=== PATIENT | female | born 1965 | race Two or more races ===

== ENCOUNTER → 2016-10-24 | Outpatient (CLI) | payer OTHER ==
[~2016-10-24] MED LIST: ACETAMINOPHEN 500 MG TAB PO ONE; LR 1,000 ML IV SCH; ROPIVACAINE 0.2% 80 MG, EPINEPHrine 0.2 MG, KETOROLAC TROMETHAMINE 30 MG, morphINE 10 M... IU ONE; TRANEXAMIC ACID 3,000 MG in NS 50 ML IRR ONE; ceFAZolin 2 GM/DEXTROSE 100 ML IV ONE
--- NOTE | 2016-10-24 17:18 | PDHPUP ---
History & Physical Update H&P update statement: This history and physical update is based on an assessment of the patient which was completed after admission or registration (within 24 hours), but prior to the surgery/procedure. H&P update: H&P reviewed & patient examined, no change in patient's condition since H&P completed
== END ==
LOC: FIMAGING 15:31
PROVIDERS: ATTEND Orthopaedic Surgery
DX: M17.0 Bilateral primary osteoarthritis of knee (principal)
CPT/HCPCS: J0171; J1885; J2795

== ENCOUNTER 2016-10-25 05:25 | Observation (INO) | payer OTHER ==
[2016-10-25] MEDS ORDERED: ROPI/epiNEPH/KETOROLAC/morphINE JOINT COCKTAIL IU ONE (06:00)
[2016-10-25] MEDS ORDERED: CEFAZOLIN 2 GM/DEXTR 100 ML IV ONE (06:00)
[2016-10-25] MEDS ORDERED: ACETAMINOPHEN 500 MG TAB PO ONE (06:00)
[2016-10-25] MEDS ORDERED: TRANEXAMIC ACID 3,000 MG in NS 50 ML IRR ONE (06:00)
[2016-10-25] MEDS ORDERED: LR 1,000 ML IV ONE (06:00)
[2016-10-25] MEDS ORDERED: LIDOCAINE 1% 2 ML INJ ONE (06:38)
[2016-10-25] MEDS ORDERED: THROMBIN (BOVINE) 5,000 UNIT VIAL TP ONE (06:48)
[2016-10-25] MEDS ORDERED: CALCIUM CHLORIDE 1 GM/10 ML INJ ONE (06:48)
[2016-10-25] MEDS ORDERED: BUPIVACAINE/EPI 0.5% 30 ML SDV ONE (06:48)
[2016-10-25] MEDS ORDERED: POLYMYXIN B SULFATE 500,000 UNIT/10 ML SYR IRR ONE (06:49)
[2016-10-25] MEDS ORDERED: BACITRACIN 50,000 UNITS/10 ML SYR IRR ONE (06:49)
[2016-10-25] MEDS ORDERED: MIDAZOLAM 2 MG/2 ML VIAL IVP ONE (06:54)
--- NOTE | 2016-10-25 06:55 | PDANEPAE ---
ANE History of Present Illness right knee pain p/f partial knee arthroplasty ANE Past Medical History - Cardiovascular History Hx Hypertension: Yes Hx Arrhythmias: No Hx Chest Pain: No Hx Coronary Artery / Peripheral Vascular Disease: No Hx CHF / Valvular Disease: No Hx Palpitations: No Cardiovascular History Comment: told heart murmur -5-6 yrs ago.August 2016 EKG WNL. - Pulmonary History Hx COPD: No Hx Asthma/Reactive Airway Disease: No Hx Recent Upper Respiratory Infection: No Hx Oxygen in Use at Home: No Hx Sleep Apnea: No Sleep Apnea Screening Result - Last Documented: Negative - Neurologic History Hx Cerebrovascular Accident: No Hx Seizures: No Hx Dementia: No - Endocrine History Hx Diabetes: No Hypothyroid: No Hyperthyroid: No Obesity: yes, severe - Renal History Hx Renal Disorders: No - Liver History Hx Hepatic Disorders: No - Neurological & Psychiatric Hx Hx Neurological and Psychiatric Disorders: No - Cancer History Hx Cancer: No - Congenital Disorder History Hx Congenital Disorders: No - GI History Hx Gastrointestinal Disorders: No - Other Health History Other Health History: OA bilat knees- R knee more painful. - Chronic Pain History Chronic Pain: Yes (R knee) - Surgical History Prior Surgeries: ear tubes placed age 10 ANE Review of Systems Review of systems is: negative Review of Systems: - Exercise capacity METS (RN): 4 METS ANE Patient History - Allergies Allergies/Adverse Reactions: No Known Allergies Allergy (Verified 10/19/16 16:53) - Home Medications Home medications: home medication list seen and reviewed Home Medications: Atenolol 01/12/14 [Last Taken Unknown] Triamterene 01/12/14 [Last Taken Unknown] - NPO status NPO Since - Liquids (Date): 10/24/16 NPO Since - Liquids (Time): 23:00 NPO Since - Solids (Date): 10/24/16 NPO Since - Solids (Time): 20:30 - Anes Hx Anes Hx: no prior problems - Smoking Hx Smoking Status: Former smoker ANE Labs/Vital Signs - Vital Signs Blood Pressure: 121/66 Heart Rate: 47 Respiratory Rate: 16 O2 Sat (%): 90 Height: 165.1 cm Weight: 103.873 kg ANE Physical Exam - Airway Neck exam: FROM Mallampati Score: Class 1 Mouth exam: normal dental/mouth exam - Pulmonary Pulmonary: no respiratory distress - Cardiovascular Cardiovascular: regular rate and rhythym - ASA Status ASA Status: III ANE Anesthesia Plan Anesthesia Plan: spinal Regional Anesthesia: single shot NB, adductor canal FNB
--- NOTE | 2016-10-25 06:59 | PDGENHP ---
History & Physical Chief Complaint: r knee pain History of Present Illness: pain in r knee Pertinent Past, Social, Family History: none Relevant Physical Exam: varus r knee with mjl pain Cardiorespiratory Assessment: cta. rrr. soft and nt
[2016-10-25] MEDS ORDERED: PROPOFOL/EMULSION 500 MG/50 ML BOTTLE IV ONE (07:00)
[2016-10-25] MEDS ORDERED: LIDOCAINE 2% 5 ML SDV ONE (07:03)
[2016-10-25] MEDS ORDERED: BUPIVACAINE 0.5% 30 ML SDV ONE (07:05)
[2016-10-25] MEDS ORDERED: fentaNYL 100 MCG/2 ML INJ ONE ×2 (07:48→09:43)
[2016-10-25] MEDS ORDERED: PROPOFOL 200 MG/20 ML VIAL ONE ×3 (08:08→09:01)
[2016-10-25] MEDS ORDERED: TRANEXAMIC ACID 3,000 MG/50 ML BAG IRR ONE (08:40)
[2016-10-25] MEDS ORDERED: ONDANSETRON 4 MG/2 ML VIAL IVP PRN (08:58)
[2016-10-25] MEDS ORDERED: DEXAMETHASONE 4 MG/ML VIAL IVP PRN (08:58)
[2016-10-25] MEDS ORDERED: LABETALOL HCL 50 MG/10 ML SYR IVP PRN (08:58)
[2016-10-25] MEDS ORDERED: PROMETHAZINE HCL 25 MG/ML INJ IVP PRN (08:58)
[2016-10-25] MEDS ORDERED: ALBUTEROL 3 ML DEYVIAL IH PRN (08:58)
[2016-10-25] MEDS ORDERED: NALOXONE HCL 0.4 MG/ML INJ IVP PRN (08:58)
[2016-10-25] MEDS ORDERED: ACETAMINOPHEN 500 MG TAB PO PRN (08:58)
[2016-10-25] MEDS ORDERED: fentaNYL 100 MCG/2 ML INJ IVP PRN (08:58)
[2016-10-25] MEDS ORDERED: METOCLOPRAMIDE 10 MG/2 ML VIAL IVP PRN (09:32)
[2016-10-25] MEDS ORDERED: POLYETHYLENE GLYCOL 3350 17 GM PKT PO PRN (09:32)
[2016-10-25] MEDS ORDERED: DIPHENOXYLATE/ATROPINE LOMOTIL 1 TAB PO PRN (09:32)
[2016-10-25] MEDS ORDERED: CYCLOBENZAPRINE 10 MG TAB PO PRN (09:32)
[2016-10-25] MEDS ORDERED: diphenhydrAMINE 25 MG CAP PO PRN (09:32)
[2016-10-25] MEDS ORDERED: TAPENTADOL HCL 50 MG TAB PO PRN (09:32)
[2016-10-25] MEDS ORDERED: MAGNESIUM HYDROXIDE 30 ML UDCUP PO PRN (09:32)
[2016-10-25] MEDS ORDERED: LACTULOSE 20 GM/30 ML UDCUP PO PRN (09:32)
[2016-10-25] MEDS ORDERED: TEMAZEPAM 15 MG CAP PO PRN (09:32)
[2016-10-25] MEDS ORDERED: PHARMACY PAIN CONSULT 1 EA MISC PRN (09:32)
[2016-10-25] MEDS ORDERED: ONDANSETRON DISINTEGRATING 4 MG TAB PO PRN (09:32)
[2016-10-25] MEDS ORDERED: PROMETHAZINE HCL 25 MG SUPPR PR PRN (09:32)
[2016-10-25] MEDS ORDERED: BISACODYL 10 MG SUPP PR PRN (09:32)
--- NOTE | 2016-10-25 09:32 | POSTOPPROG ---
Post Op Note Date of Operation: 10/25/16 Surgeon: Brina Salinas [employer] Farmworker: coltrain Anesthesia: Epidural, IV Sedation Pre-op Diagnosis: r knee oa Procedure: r pkr with robot Inf/Abcess present in the surg proc area at time of surgery?: No Depth: Deep Incisional (Fascial) EBL: 100-500
--- NOTE | 2016-10-25 09:41 | POSTANESTH ---
Post Anesthetic Evaluation Cardiovascular Status: Normal, Stable Respiratory Status: Normal, Stable Level of Consciousness/Mental Status: Can Participate in Eval Pain Control: Adequate, Prn Tx Ordered Nausea/Vomiting Control: Adequate, Prn Tx Ordered Complications Possibly Related to Anesthesia: None Noted
[2016-10-25] MEDS ORDERED: HYDROmorphONE/DILAUDID 1 MG/ML INJ ONE (09:43)
[2016-10-25] MEDS: HYDROmorphONE/DILAUDID 1 MG/ML INJ IVP PRN ×2 (09:46→09:59)
[2016-10-25] MEDS ORDERED: LR 1,000 ML IV SCH (10:00)
--- NOTE | 2016-10-25 10:28 | GOP ---
[f rep st] OPERATIVE REPORT DATE OF OPERATION: 10/25/2016 SURGEON: Brina Salinas MD ORACLE PROGRAMMER ANALYST: AHMET CorbinA, LSA, whose presence was medically necessary. ANESTHESIA: By epidural nerve block plus sedation. PREOPERATIVE DIAGNOSIS: Right knee osteoarthritis. POSTOPERATIVE DIAGNOSIS: Right knee osteoarthritis. PROCEDURE PERFORMED: Right partial knee replacement with the robot. FINDINGS: INDICATIONS: This is a 51-year-old female with a several month history of right knee pain worsening with use and with time, despite multiple conservative measures to include anti-inflammatories and viscosupplementation. Imaging studies reveal ipvk-to-lcfc osteoarthritic changes of the medial compartment. She wishes to have surgery in order to resolve the problem. DESCRIPTION OF PROCEDURE: The patient was brought to the operating room after the right side had been identified as the correct side by the patient, nurse and physician. Once in the operating room, she was given an epidural nerve block. She was then placed supine on the operative table with a tourniquet placed around the upper portion of the right thigh. The right lower extremity was then sterilely prepped and draped in the usual fashion using GSI solution. Once prepped and draped, the limb was exsanguinated and the tourniquet inflated to 250 mmHg. Two incisions were made on the tibia approximately 4 fingerbreadths below the tibial tubercle with threaded Steinmann pins placed into the bone with a detection array placed on the pins. The same was done of the femur approximately 5 cm above the superior pole of the patella, where 2 small incisions were made and threaded Steinmann pins were placed in the femur holding the computer array in place. A linear incision was then made on the anterior portion of the knee starting at the tibial tubercle and extending to just above the superior patellar pole. Sharp dissection was carried down through the skin and subcutaneous layer, with bleeding controlled using electrocautery. A medial parapatellar incision was made through the extensor mechanism. An abundant amount of retropatellar fat pad was removed as well as the medial meniscus. She was noted to have rniv-mi-rvax osteoarthritic changes of the medial compartment. Once in place, bone mapping was done with the aid of the robot. Once the area had been completely mapped out and bone guides had been placed in the femur and the tibia, the [employer] robot was able to be used to rosy away the necessary bone as well as the peg holes, fitting for size 3 tibia and femoral components after balancing had been done. Once positioned, the patient was noted to have excellent range of motion with good stability to valgus stress at 0, 45 and 90 degrees. Therefore, the bone was thoroughly irrigated with an antibiotic solution using pulsatile lavage while cement was being mixed. Once cement was doughy, it was placed on the cut surfaces of the femur and tibia with a size 3 right medial tibial base plate from [employer] from [facility]. It was put in place and excess cement removed using a [place] elevator. Cement was then placed on the cut surface of the femur with a Restoris Yimi size 3 right medial femoral component put into place, with excess cement removed using [place] elevator. The trial liner was placed in the tibial tray. The knee was brought to full extension under pressurized cement. Any excess cement was then removed using a [place] elevator and/or rongeur. It was noted that a size 10 polyethylene insert seemed to fit best. Therefore, a size 10 insert was placed with the tibial tray. It was noted to click into place well. The tourniquet was released at 62 minutes. Tranexamic acid was irrigated through the knee. Bleeding was controlled using electrocautery. A joint cocktail had been injected into the posterior capsule, along the periosteum of the femur and the tibia and into the extensor mechanism. The wound was closed with 0 Vicryl suture in a iudccy-vy-qvtdp type stitch with plasma gel placed intra-articularly; 0 Vicryl and 2-0 Vicryl suture were used to close the subcutaneous layers with plasma gel placed external to the extensor mechanism; 3 -0 V-Loc suture in a running subcutaneous stitch was used to close the skin layers and Monocryl was used to close the puncture wounds associated with the femur and tibial arrays which had been removed. Then, 30 mL of Marcaine was infused into the skin around the actual incision itself. The wounds were then dressed with Steri-Strips, Xeroform, 4x4s, and wrapped in Kerlix. The leg was completely undraped in the operating room, the tourniquet removed from the thigh, and an Harjit wrap placed around the knee. The patient was then transferred onto a stretcher and sent to the recovery room in a good condition. TOURNIQUET TIME: 62 minutes. /[id number]/MODL MTDD
[2016-10-25] MEDS: traMADol 50 MG TAB PO SCH ×2 (12:22→18:06)
[2016-10-25] MEDS: KETOROLAC 30 MG/1 ML SDV IVP SCH ×2 (12:22→18:09)
[2016-10-25] MEDS: ceFAZolin 2 GM/DEXTROSE 100 ML IV SCH ×2 (15:07→21:30)
--- NOTE | 2016-10-25 16:53 | ASMTCMCOM ---
CM Note CM Note Notes: Pt is s/p R TKA. She lives with her and daughter. PT has cleared pt. Anticipate d/c home with no CM needs but will continue to follow for any unanticipated d/c needs. Date Signed: 10/25/2016 04:52 PM Electronically Signed By:Doreen Peters
[2016-10-25] MEDS: oxyCODONE IR 5 MG TAB PO PRN (20:25)
[2016-10-25] MEDS: FAMOTIDINE 20 MG TAB PO SCH (20:26)
[2016-10-25] MEDS: SENNOSIDES/DOCUSATE SODIUM TAB PO SCH (20:27)
[2016-10-26] MEDS: traMADol 50 MG TAB PO SCH ×3 (00:05→11:37)
[2016-10-26] MEDS: KETOROLAC 30 MG/1 ML SDV IVP SCH ×3 (00:05→11:37)
[2016-10-26 05:20] LABS: HEMATOCRIT 36.2 % (38.0-47.0); HEMOGLOBIN 11.8 g/dL (12.6-16.3)
[2016-10-26] MEDS: oxyCODONE IR 5 MG TAB PO PRN ×2 (08:15→14:47)
[2016-10-26] MEDS: SENNOSIDES/DOCUSATE SODIUM TAB PO SCH (08:16)
[2016-10-26] MEDS: FAMOTIDINE 20 MG TAB PO SCH (08:17)
[2016-10-26] MEDS ORDERED: RIVAROXABAN 10 MG TAB PO SCH (09:00)
[2016-10-26 09:20] VITALS: TEMP 98.4
--- NOTE | 2016-10-26 12:09 | SOAPPROG ---
SOAP Progress Note Assessment/Plan: Assessment: Plan: - d/c home with home PT 10/26/16 12:08 Subjective: Doing well no issues, pain is minimal. She feels ready to go home Objective: Vital Signs Temp Pulse Resp BP Pulse Ox 36.9 C 56 L 16 122/60 H 93 10/26/16 09:19 10/26/16 09:19 10/26/16 09:19 10/26/16 09:19 10/26/16 09:19 Laboratory Results 10/26/16 04:47 10/25/16 10/26/16 10/27/16 05:59 05:59 05:59 Intake Total 1835 Output Total 700 Balance 1135 Wound CDI, compartments soft, NVI. Dressing changed - Time Spent With Patient Time Spent With Patient: 15 - Pending Discharge Pending Discharge Within 24 Hours: Yes Pending Discharge Within 48 Hours: No Pending Discharge Date: 10/27/16 Pending Discharge Time: 11:00 ICD10 Worksheet Patient Problems: Problems Problem Status Onset Arthritis of knee, right Acute - ICD10 Problem Qualifiers (1) Arthritis of knee, right
--- NOTE | 2016-10-26 12:11 | PDIAF ---
- Diagnosis Code Status: Full Code - Medication Management Discharge Medications: Medications to Continue on Transfer Atenolol [Tenormin 50 mg (*)] 50 mg PO DAILY 01/12/14 [Last Taken 10/25/16] Triamterene/Hydrochlorothiazid [Triamterene-Hctz 37.5-25 mg Tb] 1 each PO DAILY 01/12/14 [Last Taken 10/24/16] Ibuprofen [Motrin (*)] 200 mg PO DAILY PRN 10/25/16 [Last Taken Unknown] Rivaroxaban [Xarelto 10mg (*)] 10 mg PO DAILY 10/25/16 [Last Taken Unknown] Discharge Medications: Refer to the Discharge Home Medication list for PRN reason. PICC Care - Routine: N/A - Orders Services needed: Physical Therapy Diet Recommendation: no restrictions on diet Diet Texture: Regular Texture Diet Chew: Not applicable - Follow Up Care Current Providers and Referrals: Allan Canas DO [Primary Care Provider] -
[2016-10-26 12:58] VITALS: BP 116/49; PULSE 63; RESP 18; O2SAT 98
--- NOTE | 2016-10-26 16:51 | ASDISCHSUM ---
Discharge Information Plan Status:Home with No Needs Medically Cleared to Leave: Discharge Date:10/26/2016 03:49 PM CM D/C Disposition:Home, Routine, Self-Care ADT D/C Disposition:Home, Routine, Self-Care Projected Discharge Date:10/26/2016 03:49 PM Transportation at D/C: Discharge Delay Reason: Follow-Up Date:10/26/2016 03:49 PM Discharge Slot: Final Diagnosis: Placement Information Patient Contact Information Contact Name:DEVIN Relationship: Address:[address] City:[facility] Phone: [facility]/Zip Code:[place] [address] Email: Financial Information Financial Class:[facility] Primary Plan Desc:[facility] Primary Plan Number:[id number] Secondary Plan Desc: Secondary Plan Number: Assessment Information [facility] CM Progress Note CM Note CM Note Notes: Pt is s/p R TKA. She lives with her and daughter. PT has cleared pt. Anticipate d/c home with no CM needs but will continue to follow for any unanticipated d/c needs. Date Signed: 10/25/2016 04:52 PM Electronically Signed By:LILA Price [facility] CM Progress Note CM Note CM Note Notes: Pt medically stable for d/c, no CM d/c needs identified. Date Signed: 10/26/2016 04:50 PM Electronically Signed By:LILA Vasquez Intervention Information
[2016-10-27] MEDS ORDERED: RIVAROXABAN 10 MG TAB PO SCH (09:00)
== END 2016-10-26 15:49 | disposition home or self-care (01) ==
LOC: F3N 05:25 → INTOOBSV 05:25 → F3N 10:39
PROVIDERS: ADMIT Orthopaedic Surgery; ATTEND Orthopaedic Surgery
PROC: 8E0Y0CZ Robotic Assisted Procedure of Lower Extremity, Open Approach (ICD-10-PCS; principal; 2016-10-25 07:15)
PROC: 0SRC0J9 Replacement of Right Knee Joint with Synthetic Substitute, Cemented, Open Approach (ICD-10-PCS; principal; 2016-10-25 07:15)
DX: M17.0 Bilateral primary osteoarthritis of knee (principal); Z87.891 Personal history of nicotine dependence
CPT/HCPCS: 27446; 73560; 97110; 97116; 97161; 97165; G0378; C1713; J0171; J0690; J1170; J1885; J2250; J2704; J2795; J3010; L1832

== ENCOUNTER → 2016-12-01 | Outpatient (CLI) | payer OTHER | LOC: CIMAGING 14:23 | PROVIDERS: ATTEND Family Medicine | DX: Z12.31 Encounter for screening mammogram for malignant neoplasm of breast (principal) | CPT/HCPCS: G0202 ==

== ENCOUNTER 2016-12-20 07:14 | Observation (INO) | payer OTHER ==
--- NOTE | 2016-12-16 23:55 | GHP ---
[f rep st] PREOP HISTORY AND PHYSICAL CURRENT COMPLAINT: Left knee pain. HISTORY OF PRESENT ILLNESS: The patient is a 51-year-old female with a long history of left knee pema n, worsening with use and with time. MRI has revealed osteoarthritic changes within her knees with t he left worse than right. She has undergone conservative measures with viscosupplementation and anti -inflammatories, as well as physical therapy exercises. She has had successful right partial knee re placement. She is here for a left partial knee replacement. ALLERGIES: She lists no known allergies. CURRENT MEDICATIONS: Include atenolol, metoprolol, tramadol, triamterene with hydrochlorothiazide. PRIOR MEDICAL PROBLEMS: Negative. PAST SURGICAL HISTORY: Include ear surgery and a partial knee replacement. SOCIAL HISTORY: She has never been a smoker. She is a social drinker. PHYSICAL EXAM: HEENT: Pupils are equal, round, react to light. CHEST: Clear to auscultation. HEA RT: Regular rate and rhythm. ABDOMEN: Soft and nontender. EXTREMITIES: A mild varus bow to her k nee with osteophytic spurring noted in the medial compartment. ASSESSMENT AND PLAN: The patient is status post left knee osteoarthritis. The patient is to undergo a left partial knee replacement with robotic assistance. /[id number]/MODL
[2016-12-20] MEDS ORDERED: THROMBIN (BOVINE) 5,000 UNIT VIAL TP ONE (07:41)
[2016-12-20] MEDS ORDERED: CALCIUM CHLORIDE 1 GM/10 ML INJ ONE (07:41)
[2016-12-20] MEDS ORDERED: BUPIVACAINE 0.5% 30 ML SDV ONE (07:41)
[2016-12-20] MEDS ORDERED: BACITRACIN 50,000 UNITS/10 ML SYR IRR ONE (07:42)
[2016-12-20] MEDS ORDERED: POLYMYXIN B SULFATE 500,000 UNIT/10 ML SYR IRR ONE (07:42)
[2016-12-20] MEDS ORDERED: LR 1,000 ML IV ONE (08:08)
[2016-12-20] MEDS ORDERED: ACETAMINOPHEN 500 MG TAB PO ONE (08:15)
[2016-12-20] MEDS ORDERED: TRANEXAMIC ACID 3,000 MG in NS 50 ML IRR ONE (08:15)
[2016-12-20] MEDS ORDERED: ceFAZolin 2 GM/SWFI 2 GM/20 ML SYR IVP ONE (08:15)
[2016-12-20] MEDS ORDERED: ROPIVACAINE 0.2% 80 MG, EPINEPHrine 0.2 MG, KETOROLAC TROMETHAMINE 30 MG in BAG 0 ML IU ONE (08:15)
--- NOTE | 2016-12-20 08:25 | PDANEPAE ---
ANE Past Medical History - Cardiovascular History Hx Hypertension: Yes Hx Arrhythmias: No Hx Chest Pain: No Hx Coronary Artery / Peripheral Vascular Disease: No Hx CHF / Valvular Disease: No Hx Palpitations: No Cardiovascular History Comment: told heart murmur -5-6 yrs ago. - Pulmonary History Hx COPD: No Hx Asthma/Reactive Airway Disease: No Hx Recent Upper Respiratory Infection: No Hx Oxygen in Use at Home: No Hx Sleep Apnea: No - Neurologic History Hx Cerebrovascular Accident: No Hx Seizures: No Hx Dementia: No - Endocrine History Hx Diabetes: No Hypothyroid: No Hyperthyroid: No Obesity: moderate - Renal History Hx Renal Disorders: No - Liver History Hx Hepatic Disorders: No - Neurological & Psychiatric Hx Hx Neurological and Psychiatric Disorders: No - Cancer History Hx Cancer: No - Congenital Disorder History Hx Congenital Disorders: No - GI History Hx Gastrointestinal Disorders: No - Other Health History Other Health History: OSTEOARTHRITIS - Chronic Pain History Chronic Pain: Yes (LT KNEE) - Surgical History Prior Surgeries: RT PARTIAL KNEE ARTHROPLASTY 10/27/2016. T&T 1975 ANE Review of Systems Review of Systems: - Exercise capacity METS (RN): 4 METS ANE Patient History - Allergies Allergies/Adverse Reactions: No Known Allergies Allergy (Verified 10/19/16 16:53) - Home Medications Home Medications: Atenolol [Tenormin 50 mg (*)] 50 mg PO DAILY06 01/12/14 [Last Taken 12/20/16 06: 45] Triamterene/Hydrochlorothiazid [Triamterene-Hctz 37.5-25 mg Tb] 1 each PO DAILY06 01/12/14 [Last Taken 1 Day Ago ~12/19/16] traMADol PRN 11/22/16 [Last Taken 2 Weeks Ago ~12/06/16] - NPO status NPO Since - Liquids (Date): 12/19/16 NPO Since - Liquids (Time): 22:30 NPO Since - Solids (Date): 12/19/16 NPO Since - Solids (Time): 19:00 - Smoking Hx Smoking Status: Former smoker - Alcohol Use Alcohol Use: Occasionally - Family Anes Hx Family Anes Hx: neg - N/A ANE Labs/Vital Signs - Labs Result Diagrams: 12/20/16 08:05 - Vital Signs Blood Pressure: 120/72 Heart Rate: 46 Respiratory Rate: 18 O2 Sat (%): 94 Height: 165.1 cm Weight: 103.419 kg ANE Physical Exam - Airway Neck exam: FROM Mallampati Score: Class 2 Mouth exam: normal dental/mouth exam - Pulmonary Pulmonary: no respiratory distress, no rales or rhonchi, clear to auscultation - Cardiovascular Cardiovascular: regular rate and rhythym, no murmur, rub, or gallop - ASA Status ASA Status: II ANE Anesthesia Plan Anesthesia Plan: MAC, spinal Regional Anesthesia: adductor canal FNB Urgent/Emergent Case: Trini campuzano completed preop but documented later for safe timely pt care
[2016-12-20] MEDS ORDERED: MIDAZOLAM 2 MG/2 ML VIAL IVP ONE (08:57)
[2016-12-20] MEDS ORDERED: PROPOFOL/EMULSION 500 MG/50 ML BOTTLE IV ONE ×2 (09:06→10:20)
[2016-12-20] MEDS ORDERED: fentaNYL 100 MCG/2 ML INJ ONE (09:06)
[2016-12-20] MEDS ORDERED: LIDOCAINE 2% 5 ML SDV ONE ×2 (09:07)
[2016-12-20] MEDS ORDERED: METOCLOPRAMIDE 10 MG/2 ML VIAL ONE ×2 (09:48)
[2016-12-20] MEDS ORDERED: PHENYLEPHRINE HCL 100 MCG/ML SYR ONE (09:54)
[2016-12-20] MEDS ORDERED: epHEDrine SULFATE 10 MG/ML SYR ONE ×3 (10:03→10:16)
[2016-12-20] MEDS ORDERED: HYDROCODONE/APAP 5/325 TAB PO PRN (10:12)
[2016-12-20] MEDS ORDERED: NALOXONE HCL 0.4 MG/ML INJ IVP PRN (10:12)
[2016-12-20] MEDS ORDERED: ACETAMINOPHEN 500 MG TAB PO PRN (10:12)
[2016-12-20] MEDS ORDERED: ONDANSETRON 4 MG/2 ML VIAL IVP PRN ×2 (10:12→11:21)
[2016-12-20] MEDS ORDERED: OXYCODONE/APAP 5/325 TAB PO PRN (10:12)
[2016-12-20] MEDS ORDERED: ROPIVACAINE HCL 150 MG/30 ML INJ ONE (11:20)
[2016-12-20] MEDS ORDERED: POLYETHYLENE GLYCOL 3350 17 GM PKT PO PRN (11:21)
[2016-12-20] MEDS ORDERED: PROMETHAZINE HCL 25 MG SUPPR PR PRN (11:21)
[2016-12-20] MEDS ORDERED: LACTULOSE 20 GM/30 ML UDCUP PO PRN (11:21)
[2016-12-20] MEDS ORDERED: MAGNESIUM HYDROXIDE 30 ML UDCUP PO PRN (11:21)
[2016-12-20] MEDS ORDERED: TAPENTADOL HCL 50 MG TAB PO PRN (11:21)
[2016-12-20] MEDS ORDERED: CYCLOBENZAPRINE 10 MG TAB PO PRN (11:21)
[2016-12-20] MEDS ORDERED: diphenhydrAMINE 25 MG CAP PO PRN (11:21)
[2016-12-20] MEDS ORDERED: PROMETHAZINE HCL 25 MG/ML INJ IVP PRN (11:21)
[2016-12-20] MEDS ORDERED: METOCLOPRAMIDE 10 MG/2 ML VIAL IVP PRN (11:21)
[2016-12-20] MEDS ORDERED: DIPHENOXYLATE/ATROPINE LOMOTIL 1 TAB PO PRN (11:21)
[2016-12-20] MEDS ORDERED: BISACODYL 10 MG SUPP PR PRN (11:21)
[2016-12-20] MEDS ORDERED: TEMAZEPAM 15 MG CAP PO PRN (11:21)
[2016-12-20] MEDS ORDERED: ONDANSETRON DISINTEGRATING 4 MG TAB PO PRN (11:21)
--- NOTE | 2016-12-20 11:21 | POSTOPPROG ---
Post Op Note Date of Operation: 12/20/16 Surgeon: Brina Salinas [employer] Production Manager: tricia Anesthesiologist: dorota Anesthesia: Epidural, Other (Specify) Pre-op Diagnosis: l knee oa Procedure: l knee uni with robot Inf/Abcess present in the surg proc area at time of surgery?: No Depth: Deep Incisional (Fascial) EBL: 100-500
[2016-12-20] MEDS ORDERED: LR 1,000 ML IV SCH (11:30)
[2016-12-20] MEDS ORDERED: ceFAZolin 2 GM/DEXTROSE 100 ML IV SCH (14:00)
[2016-12-20] MEDS: traMADol 50 MG TAB PO SCH ×2 (16:28→19:34)
[2016-12-20] MEDS: ACETAMINOPHEN 325 MG TAB PO SCH ×2 (16:29→17:26)
[2016-12-20] MEDS: ceFAZolin 2 GM/DEXTROSE 100 ML IV SCH (16:30)
[2016-12-20] MEDS: KETOROLAC 30 MG/1 ML SDV IVP SCH ×2 (16:36→19:44)
--- NOTE | 2016-12-20 18:05 | GOP ---
[f rep st] OPERATIVE REPORT DATE OF OPERATION: 12/20/2016 SURGEON: Brina Salinas MD PEACE OFFICER: Facundo Yousif, CSFA, LSA, whose presence was medically necessary. ANESTHESIA: By spinal, plus adductor nerve block. PREOPERATIVE DIAGNOSIS: Left knee osteoarthritis. POSTOPERATIVE DIAGNOSIS: Left knee osteoarthritis. PROCEDURE PERFORMED: FINDINGS: INDICATIONS: This is a 51-year-old female with a long history of left knee pain, worsening with use with time, despite multiple conservative measures. She had previously undergone a right partial knee replacement, which has done well. Imaging studies reveal her to have a unicompartmental arthritis. Caleb shannon wishes to have surgery in order to resolve the problem. DESCRIPTION OF PROCEDURE: Patient brought to the operating room after the left side had been identif ied as the correct side by the patient, nurse, physician. Once in the operating room, she was given a n adductor nerve block as well as an epidural nerve block. She was placed supine on the operating tab le. Tourniquet was then placed around the upper portion of the left thigh, with the left lower extrem ity sterilely prepped and draped in usual fashion using GSI solution. Once prepped and draped, the li mb was exsanguinated and tourniquet inflated to 250 mmHg. A linear incision was made on the anterior portion of the knee with sharp dissection carried down thr ough the skin and subcutaneous layers, with bleeding controlled using electrocautery. A set of 2 thre aded pins were placed in the tibia and in the femur, with computer arrays attached to them. Once note d to be in good position, the knee was brought through range of motion in order to enter data points into the computer associated with the Yimi. Medial parapatellar incision was made, and with sharp dissection, carried down through the extensor m echanism. Patella was brought to and everted. The medial meniscus was removed. She was no cheryl to have ggbt-qu-eesf osteoarthritic changes to the femoral and tibial compartment. Reference scre ws were placed in the femur and in the tibia, with them entered into the computer array. Once completed, the knee was brought through range of motion, with pictures taken at 0, 60, 90, and 1 20 degrees, with the knee placed with slight valgus pressure in order to gain data points. Once this was completed, adjustments were computer in terms of placement of the actual prosthesis. Once this was done, cartilage and bone mapping was done in order to calibrate the computer as well as the computer array. Once completed, the Yimi arm was brought to the operative field, and the rosy as sociated with the Yimi arm was used to remove the bone, and cartilage associated with the femoral and tibial components. Once completed, the keel punches were drilled into the femur and tibia. Trials we re put in the bone, noted to fit securely. Any excess cartilage was then trimmed. The bone was then t horoughly irrigated with an antibiotic solution using pulsatile lavage while cement was being mixed. Once cement was doughy, it was placed on the components with a size 3 left medial base plate put in p lace and excess cement removed using [place] elevators. Cement was then placed on the femoral component with a size 3 left medial femoral component from [employer], put into place and excess cement removed usin g [place] elevator. Trial liner was placed on the tibial tray. Knee was brought to full extension under pressurized cement. While cement was drying, the joint cocktail was injected in the posterior capsul e, along the periosteum of the femur and tibia, and into the extensor mechanism. Once cement had hard ened, multiple trials were placed, and tibial tray noted a 9 mm insert seemed to fit best. Therefore, and a size 3, 9 mm Yimi tibial insert was put into place, and noted to fit securely. Tranexamic acid was irrigated through the knee. Tourniquet was deflated at 96 minutes. Bleeding was controlled using electrocautery. The computer array as well as the threaded pins were removed from the femur and the tibia. The extensor mechanism was closed using 0 Vicryl suture in srdxdo-jv-gqheg type stitch with plasma ge l placed intra-articularly. 0 Vicryl and 2-0 Vicryl suture used to close the subcutaneous layers with plasma gel placed external to the extensor mechanism, and then a 3-0 V-Loc suture in a running subcu ticular stitch for the skin. 3-0 nylon was used in a kserjk-es-luzub type stitch to close the punctur e wounds made in the femur and tibia. Once completed, Steri-Strips were used on the knee wound. All w ounds were then dressed with Xeroform, 4 x 4, wrapped in Kerlix. Leg was completely undraped in the o perating room, tourniquet removed from the thigh, and an Harjit wrap placed around the knee. She was the n placed supine. She was transferred onto a stretcher, and sent to recovery room in good condition. PROCEDURE PERFORMED: Left knee partial knee replacement. TOURNIQUET TIME: 56 minutes. /[id number]/MODL
--- NOTE | 2016-12-20 18:05 | GOP ---
[f rep st] OPERATIVE REPORT DATE OF OPERATION: 12/20/2016 SURGEON: Brina Salinas MD [employer] SUPERVISOR: Facundo Yousif, CSFA, LSA, whose presence was medically necessary. ANESTHESIA: By spinal, plus adductor nerve block. PREOPERATIVE DIAGNOSIS: Left knee osteoarthritis. POSTOPERATIVE DIAGNOSIS: Left knee osteoarthritis. PROCEDURE PERFORMED: FINDINGS: INDICATIONS: This is a 51-year-old female with a long history of left knee pain, worsening with use with time, despite multiple conservative measures. She had previously undergone a right partial knee replacement, which has done well. Imaging studies reveal her to have a unicompartmental arthritis. Caleb shannon wishes to have surgery in order to resolve the problem. DESCRIPTION OF PROCEDURE: Patient brought to the operating room after the left side had been identif ied as the correct side by the patient, nurse, physician. Once in the operating room, she was given a n adductor nerve block as well as an epidural nerve block. She was placed supine on the operating tab le. Tourniquet was then placed around the upper portion of the left thigh, with the left lower extrem ity sterilely prepped and draped in usual fashion using GSI solution. Once prepped and draped, the li mb was exsanguinated and tourniquet inflated to 250 mmHg. A linear incision was made on the anterior portion of the knee with sharp dissection carried down thr ough the skin and subcutaneous layers, with bleeding controlled using electrocautery. A set of 2 thre aded pins were placed in the tibia and in the femur, with computer arrays attached to them. Once note d to be in good position, the knee was brought through range of motion in order to enter data points into the computer associated with the Yimi. Medial parapatellar incision was made, and with sharp dissection, carried down through the extensor m echanism. Patella was brought to and everted. The medial meniscus was removed. She was no cheryl to have [id number]-dp-[id number] osteoarthritic changes to the femoral and tibial compartment. Reference scre ws were placed in the femur and in the tibia, with them entered into the computer array. Once completed, the knee was brought through range of motion, with pictures taken at 0, 60, 90, and 1 20 degrees, with the knee placed with slight valgus pressure in order to gain data points. Once this was completed, adjustments were computer in terms of placement of the actual prosthesis. Once this was done, cartilage and bone mapping was done in order to calibrate the computer as well as the computer array. Once completed, the Yimi arm was brought to the operative field, and the rosy as sociated with the Yimi arm was used to remove the bone, and cartilage associated with the femoral and tibial components. Once completed, the keel punches were drilled into the femur and tibia. Trials we re put in the bone, noted to fit securely. Any excess cartilage was then trimmed. The bone was then t horoughly irrigated with an antibiotic solution using pulsatile lavage while cement was being mixed. Once cement was doughy, it was placed on the components with a size 3 left medial base plate put in p lace and excess cement removed using [place] elevators. Cement was then placed on the femoral component with a size 3 left medial femoral component from [employer], put into place and excess cement removed usin g [place] elevator. Trial liner was placed on the tibial tray. Knee was brought to full extension under pressurized cement. While cement was drying, the joint cocktail was injected in the posterior capsul e, along the periosteum of the femur and tibia, and into the extensor mechanism. Once cement had hard ened, multiple trials were placed, and tibial tray noted a 9 mm insert seemed to fit best. Therefore, and a size 3, 9 mm Yimi tibial insert was put into place, and noted to fit securely. Tranexamic acid was irrigated through the knee. Tourniquet was deflated at 96 minutes. Bleeding was controlled using electrocautery. The computer array as well as the threaded pins were removed from the femur and the tibia. The extensor mechanism was closed using 0 Vicryl suture in icwvkc-ht-lwhvz type stitch with plasma ge l placed intra-articularly. 0 Vicryl and 2-0 Vicryl suture used to close the subcutaneous layers with plasma gel placed external to the extensor mechanism, and then a 3-0 V-Loc suture in a running subcu ticular stitch for the skin. 3-0 nylon was used in a muvnuo-ia-ukghm type stitch to close the punctur e wounds made in the femur and tibia. Once completed, Steri-Strips were used on the knee wound. All w ounds were then dressed with Xeroform, 4 x 4, wrapped in Kerlix. Leg was completely undraped in the o perating room, tourniquet removed from the thigh, and an Harjit wrap placed around the knee. She was the n placed supine. She was transferred onto a stretcher, and sent to recovery room in good condition. PROCEDURE PERFORMED: Left knee partial knee replacement. TOURNIQUET TIME: 56 minutes. /[id number]/MODL
[2016-12-20] MEDS: oxyCODONE IR 5 MG TAB PO PRN ×2 (19:45→22:59)
[2016-12-21] MEDS: KETOROLAC 30 MG/1 ML SDV IVP SCH ×3 (01:04→12:26)
[2016-12-21] MEDS: ACETAMINOPHEN 325 MG TAB PO SCH ×3 (01:04→12:02)
[2016-12-21] MEDS: SENNOSIDES/DOCUSATE SODIUM TAB PO SCH ×2 (01:05→08:48)
[2016-12-21] MEDS: FAMOTIDINE 20 MG TAB PO SCH ×2 (01:05→08:48)
[2016-12-21] MEDS: traMADol 50 MG TAB PO SCH ×3 (01:05→12:03)
[2016-12-21] MEDS: ceFAZolin 2 GM/DEXTROSE 100 ML IV SCH (01:12)
[2016-12-21] MEDS ORDERED: RIVAROXABAN 10 MG TAB PO SCH (09:00)
[2016-12-21] MEDS ORDERED: TRIAMTERENE/HCTZ 37.5/25 1 EACH TAB PO ONE (09:15)
[2016-12-21] MEDS ORDERED: ATENOLOL 25 MG TAB PO ONE (09:45)
[2016-12-21 11:31] VITALS: BP 141/79; PULSE 51; RESP 16; TEMP 97.7; O2SAT 94
--- NOTE | 2016-12-21 11:57 | SOAPPROG ---
SOAP Progress Note Assessment/Plan: Assessment: Plan: d/c home, doesn't want PT at home 12/21/16 11:57 Subjective: Pt doing well ready for dc Objective: Vital Signs Temp Pulse Resp BP Pulse Ox 36.5 C 51 L 16 141/79 H 94 12/21/16 11:30 12/21/16 11:30 12/21/16 11:30 12/21/16 11:30 12/21/16 11:30 Laboratory Results 12/21/16 04:25 12/20/16 08:05 12/20/16 12/21/16 12/22/16 05:59 05:59 05:59 Intake Total 3350 Output Total 525 500 Balance 2825 -500 wound cdi, calf nt, nvi - Time Spent With Patient Time Spent With Patient: 15 - Pending Discharge Pending Discharge Within 24 Hours: Yes Pending Discharge Within 48 Hours: No Pending Discharge Date: 12/22/16 Pending Discharge Time: 11:00 ICD10 Worksheet Patient Problems: Problems Problem Status Onset Arthritis of knee, right Acute
--- NOTE | 2016-12-21 12:40 | PDIAF ---
- Diagnosis Code Status: Full Code - Medication Management Discharge Medications: Medications to Continue on Transfer Atenolol [Tenormin 25 mg (*)] 50 mg PO DAILY 12/20/16 [Last Taken 12/20/16] Triamterene/Hctz 37.5/25 [Maxzide-25 (*)] 1 tab PO DAILY 12/20/16 [Last Taken ] oxyCODONE IR [Oxycodone Ir (*)] 5 mg PO Q4-6PRN PRN 12/20/16 [Last Taken Unknown ] traMADol [Ultram 50 mg (*)] 50 mg PO Q4-6PRN PRN 12/20/16 [Last Taken Unknown] Rivaroxaban [Xarelto 10mg (*)] 10 mg PO DAILY tab 12/21/16 [Last Taken Unknown] oxyCODONE IR [Oxycodone Ir (*)] 5 - 10 mg PO Q3HRS PRN tab 12/21/16 [Last Taken Unknown] Discharge Medications: Refer to the Discharge Home Medication list for PRN reason. - Orders Diet Recommendation: no restrictions on diet Diet Texture: Regular Texture Diet Chew: Not applicable Activity/Weight Bearing Restrictions: wbat - Follow Up Care Current Providers and Referrals: Brandy Jimenez MD [Primary Care Provider] -
--- NOTE | 2016-12-21 14:17 | ASDISCHSUM ---
Discharge Information Plan Status:Home with No Needs Medically Cleared to Leave: Discharge Date:12/21/2016 01:28 PM CM D/C Disposition:Home, Routine, Self-Care ADT D/C Disposition:Home, Routine, Self-Care Projected Discharge Date:12/21/2016 01:28 PM Transportation at D/C: Discharge Delay Reason: Follow-Up Date:12/21/2016 01:28 PM Discharge Slot: Final Diagnosis: Placement Information Patient Contact Information Contact Name:DEVIN Relationship: Address:[address] City:[facility] Phone: [facility]/Zip Code:[place] [address] Email: Financial Information Financial Class:[facility] [employer] Primary Plan Desc:[employer] HMO OPEN ACC LOCAL Primary Plan Number:[id number] Secondary Plan Desc: Secondary Plan Number: Assessment Information [facility] CM Progress Note CM Note CM Note Notes: Pt medically stable for d/c, no CM d/c needs identified Date Signed: 12/21/2016 02:16 PM Electronically Signed By:LILA Vasquez Intervention Information
--- NOTE | 2016-12-21 14:17 | ASDISCHSUM ---
Discharge Information Plan Status:Home with No Needs Medically Cleared to Leave: Discharge Date:12/21/2016 01:28 PM CM D/C Disposition:Home, Routine, Self-Care ADT D/C Disposition:Home, Routine, Self-Care Projected Discharge Date:12/21/2016 01:28 PM Transportation at D/C: Discharge Delay Reason: Follow-Up Date:12/21/2016 01:28 PM Discharge Slot: Final Diagnosis: Placement Information Patient Contact Information Contact Name:DEVIN Relationship: Address:[address] City:[facility] Phone: [facility]/Zip Code:[place] [address] Email: Financial Information Financial Class:[facility] Primary Plan Desc:[employer] P[employer] HMO OPEN ACC LOCAL Primary Plan Number:[id number] Secondary Plan Desc: Secondary Plan Number: Assessment Information [facility] CM Progress Note CM Note CM Note Notes: Pt medically stable for d/c, no CM d/c needs identified Date Signed: 12/21/2016 02:16 PM Electronically Signed By:LILA Vasquez Intervention Information
--- NOTE | 2016-12-21 14:17 | ASDISCHSUM ---
Discharge Information Plan Status:Home with No Needs Medically Cleared to Leave: Discharge Date:12/21/2016 01:28 PM CM D/C Disposition:Home, Routine, Self-Care ADT D/C Disposition:Home, Routine, Self-Care Projected Discharge Date:12/21/2016 01:28 PM Transportation at D/C: Discharge Delay Reason: Follow-Up Date:12/21/2016 01:28 PM Discharge Slot: Final Diagnosis: Placement Information Patient Contact Information Contact Name:DEVIN Relationship: Address:[address] City:[facility] Phone: [facility]/Zip Code:[place] [address] Email: Financial Information Financial Class:[facility] Primary Plan Desc:[employer] PPO HMO OPEN ACC LOCAL Primary Plan Number:[id number] Secondary Plan Desc: Secondary Plan Number: Assessment Information [facility] CM Progress Note CM Note CM Note Notes: Pt medically stable for d/c, no CM d/c needs identified Date Signed: 12/21/2016 02:16 PM Electronically Signed By:LILA Vasquez Intervention Information
== END 2016-12-21 13:28 | disposition home or self-care (01) ==
LOC: INTOOBSV 07:14 → F3N 07:14 → PREOBSVTOIN 14:56 → F3N 14:59
PROVIDERS: ADMIT Orthopaedic Surgery; ATTEND Orthopaedic Surgery
DX: M17.12 Unilateral primary osteoarthritis, left knee (principal); Z96.651 Presence of right artificial knee joint
CPT/HCPCS: 0232T; 27446; 73560; 97116; 97161; 97165; G0378; C1713; J0171; J0690; J1885; J2250; J2370; J2704; J2765; J2795; J3010

== ENCOUNTER → 2017-08-15 | Outpatient (CLI) | payer OTHER | LOC: CIMAGING 17:02 | PROVIDERS: ATTEND Family Medicine | DX: M77.31 Calcaneal spur, right foot (principal); M77.9 Enthesopathy, unspecified | CPT/HCPCS: 73620-PO ==